=== PATIENT | male | born 1945 | race Caucasian/White ===

== ENCOUNTER 2016-03-11 07:08 | Outpatient (CLI) | payer MEDICARE | END 2016-03-11 07:09 | disposition home or self-care (01) | DX: J30.9 Allergic rhinitis, unspecified (principal); M54.12 Radiculopathy, cervical region; I25.9 Chronic ischemic heart disease, unspecified; F32.9 Major depressive disorder, single episode, unspecified; E11.9 Type 2 diabetes mellitus without complications; E78.5 Hyperlipidemia, unspecified; G47.10 Hypersomnia, unspecified; I10 Essential (primary) hypertension; M54.5 Low back pain; R25.1 Tremor, unspecified; R26.81 Unsteadiness on feet ==

== ENCOUNTER 2016-04-23 10:50 | Outpatient (CLI) | payer MEDICARE | END 2016-04-23 10:51 | disposition home or self-care (01) | DX: Z00.00 Encounter for general adult medical examination without abnormal findings (principal); E11.9 Type 2 diabetes mellitus without complications; J30.9 Allergic rhinitis, unspecified; M54.12 Radiculopathy, cervical region; I25.9 Chronic ischemic heart disease, unspecified; F32.9 Major depressive disorder, single episode, unspecified; E78.5 Hyperlipidemia, unspecified; G47.10 Hypersomnia, unspecified; I10 Essential (primary) hypertension; M54.5 Low back pain; R25.1 Tremor, unspecified; R26.81 Unsteadiness on feet ==

== ENCOUNTER 2016-05-17 10:11 | Outpatient (CLI) | payer MEDICARE | END 2016-05-17 10:12 | disposition home or self-care (01) | DX: R07.9 Chest pain, unspecified (principal); I25.9 Chronic ischemic heart disease, unspecified ==

== ENCOUNTER 2016-05-26 07:46 | Outpatient (CLI) | payer MEDICARE | END 2016-05-26 07:47 | disposition home or self-care (01) | DX: I10 Essential (primary) hypertension (principal) ==

== ENCOUNTER 2016-07-15 07:08 | Outpatient (CLI) | payer MEDICARE ==
[2016-07-15 11:49] LABS: HEMOGLOBIN A1C 0.83 g/dL
== END 2016-07-15 07:09 | disposition home or self-care (01) ==
LOC: LAB.F 07:08
PROVIDERS: ATTEND Internal Medicine
DX: E11.9 Type 2 diabetes mellitus without complications (principal)
CPT/HCPCS: 36415; 83036

== ENCOUNTER 2016-10-12 07:09 | Outpatient (CLI) | payer MEDICARE ==
[2016-10-12 11:11] LABS: HEMOGLOBIN A1C 0.95 g/dL
== END 2016-10-12 07:10 | disposition home or self-care (01) ==
LOC: LAB.F 07:09
PROVIDERS: ATTEND Internal Medicine
DX: J30.9 Allergic rhinitis, unspecified (principal); I25.9 Chronic ischemic heart disease, unspecified; F32.9 Major depressive disorder, single episode, unspecified; E11.9 Type 2 diabetes mellitus without complications; E78.5 Hyperlipidemia, unspecified; I10 Essential (primary) hypertension; M54.5 Low back pain; L98.9 Disorder of the skin and subcutaneous tissue, unspecified; R25.1 Tremor, unspecified
CPT/HCPCS: 36415; 83036

== ENCOUNTER 2016-11-05 09:08 | Outpatient (CLI) | payer MEDICARE ==
[2016-11-05 18:28] LABS: ALBUMIN/GLOBULIN RATIO 1.5 (1.0-2.2); BILIRUBIN,TOTAL 0.8 mg/dL (0.2-1.0); CALCIUM 9.2 mg/dL (8.5-10.3); CREATININE 0.9 mg/dL (0.6-1.2); TOTAL PROTEIN 7.5 g/dL (6.7-8.2)
[2016-11-05 18:30] LABS: BASOPHILS % (AUTO) 0.3 %; EOSINOPHILS # (AUTO) 0.1 10^3/uL (0.0-0.7); EOSINOPHILS % (AUTO) 1.6 %; HCT - HEMATOCRIT 51.5 % (42.0-52.0); HGB - HEMOGLOBIN 16.8 g/dL (14.0-18.0); LYMPHOCYTES # (AUTO) 1.7 10^3/uL (1.5-3.5); LYMPHOCYTES % (AUTO) 24.9 %; MEAN CORPUSCULAR HEMOGLOBIN 31.9 pg (27.0-31.0); MEAN CORPUSCULAR HGB CONC 32.6 g/dL (32.0-36.0); MEAN PLATELET VOLUME 8.9 fL (7.4-11.4); MONOCYTES # (AUTO) 0.7 10^3/uL (0.0-1.0); MONOCYTES % (AUTO) 10.6 %; NEUTROPHILS # (AUTO) 4.3 10^3/uL (1.5-6.6); NEUTROPHILS % (AUTO) 62.6 %; NUCLEATED RED BLOOD CELLS AUTO 0.1 /100WBC; RED BLOOD COUNT 5.25 10^6/uL (4.70-6.10); UNCORRECTED WHITE BLOOD COUNT 6.9 x10^3/uL; WHITE BLOOD COUNT 6.9 x10^3/uL (4.8-10.8)
[2016-11-05 18:47] LABS: HEMOGLOBIN A1C 0.98 g/dL
== END 2016-11-05 09:09 | disposition home or self-care (01) ==
LOC: LAB.F 09:08
PROVIDERS: ATTEND Internal Medicine
DX: E11.9 Type 2 diabetes mellitus without complications (principal); I25.9 Chronic ischemic heart disease, unspecified; E78.5 Hyperlipidemia, unspecified; R25.1 Tremor, unspecified; Z11.59 Encounter for screening for other viral diseases; Z11.4 Encounter for screening for human immunodeficiency virus [HIV]
CPT/HCPCS: 36415; 80053; 83036; 84443; 85025; 86803; G0475; 87389

== ENCOUNTER 2016-11-16 09:02 | Outpatient (CLI) | payer MEDICARE ==
[2016-11-16] MEDS: ALBUTEROL NEB 2.5 MG/3 ML INH SCH (09:30)
--- NOTE | 2016-11-16 13:04 | XRAY Report ---
TWO-VIEW CHEST: 11/16/2016 CLINICAL INDICATION: Chest pain, shortness of breath. COMPARISON: 01/10/2015 FINDINGS: Frontal and lateral views of the chest demonstrate a normal cardiac silhouette. The lungs are hyperinflated, compatible with COPD. No focal consolidation, effusion, or pneumothorax is prese nt. IMPRESSION: COPD, BUT NO EVIDENCE OF ACUTE CARDIOPULMONARY DISEASE. JOB #: [id number] EXT JOB #:[id number]
== END 2016-11-16 09:03 | disposition home or self-care (01) ==
LOC: RT 09:02
PROVIDERS: ATTEND Internal Medicine
DX: J44.9 Chronic obstructive pulmonary disease, unspecified (principal); R06.02 Shortness of breath; R07.9 Chest pain, unspecified
CPT/HCPCS: 71020; 93005; 94060; J7613

== ENCOUNTER 2016-11-17 12:59 | Outpatient (CLI) | payer MEDICARE | END 2016-11-17 13:00 | disposition short-term general hospital (02) | LOC: EMS 12:59 | PROVIDERS: ATTEND Surgery | DX: R55 Syncope and collapse (principal); R07.9 Chest pain, unspecified; R06.02 Shortness of breath | CPT/HCPCS: A0425; A0427 ==

== ENCOUNTER 2017-01-19 12:40 | Outpatient (CLI) | payer MEDICARE | END 2017-01-19 12:41 | disposition EMS.NT | LOC: EMS 12:40 | PROVIDERS: ATTEND Surgery | DX: R56.9 Unspecified convulsions (principal) ==

== ENCOUNTER 2017-03-18 07:17 | Outpatient (CLI) | payer MEDICARE ==
[2017-03-18 12:04] LABS: BASOPHILS % (AUTO) 0.6 %; EOSINOPHILS # (AUTO) 0.1 10^3/uL (0.0-0.7); LYMPHOCYTES # (AUTO) 1.1 10^3/uL (1.5-3.5); LYMPHOCYTES % (AUTO) 24.5 %; MEAN CORPUSCULAR HEMOGLOBIN 32.2 pg (27.0-31.0); MEAN CORPUSCULAR HGB CONC 33.4 g/dL (32.0-36.0); MEAN CORPUSCULAR VOLUME 96.5 fL (80.0-94.0); MONOCYTES # (AUTO) 0.7 10^3/uL (0.0-1.0); NEUTROPHILS # (AUTO) 2.4 10^3/uL (1.5-6.6); NEUTROPHILS % (AUTO) 55.9 %; PLT - PLATELET COUNT 154 10^3/uL (130-450); RED BLOOD COUNT 4.97 10^6/uL (4.70-6.10); RED CELL DISTRIBUTION WIDTH 14.2 % (12.0-15.0); WHITE BLOOD COUNT 4.4 x10^3/uL (4.8-10.8)
[2017-03-18 12:20] LABS: ALBUMIN 4.2 g/dL (3.2-5.5); ALBUMIN/GLOBULIN RATIO 1.4 (1.0-2.2); ALKALINE PHOSPHATASE 49 IU/L (42-121); ALT ALANINE AMINOTRANSFERASE 33 IU/L (10-60); AST ASPARTATE AMINOTRANSFERASE 27 IU/L (10-42); BILIRUBIN,TOTAL 0.4 mg/dL (0.2-1.0); BUN - BLOOD UREA NITROGEN 23 mg/dL (6-20); CALCIUM 9.2 mg/dL (8.5-10.3); CARBON DIOXIDE - CO2 23 mmol/L (21-32); CHLORIDE 102 mmol/L (101-111); CHOL/HDL RATIO 4.9 (<5.0); CHOLESTEROL 180 mg/dL; CK- CREATINE KINASE 129 IU/L (22-269); CREATININE 0.9 mg/dL (0.6-1.2); CREATININE,URINE 161.6 mg/dL; GFR - MDRD 83 (>89); GLUCOSE 133 mg/dL (70-100); HDL CHOLESTEROL 37 mg/dL; LDL CHOLESTEROL,CALCULATED 83 mg/dL; LDL/HDL RATIO 2.2 (<3.6); MICROALBUM/CREATININE RATIO,UR 6.8 ug/mg (<30.0); MICROALBUMIN,URINE 1.1 mg/dL (0-300.0); SODIUM 138 mmol/L (135-145); TOTAL PROTEIN 7.2 g/dL (6.7-8.2); VLDL CHOLESTEROL 60 mg/dL
[2017-03-18 12:28] LABS: HB2 TOTAL 17.5 g/dL; HEMOGLOBIN A1C 0.87 g/dL; HEMOGLOBIN A1C % 6.7 % (4.6-6.2)
[2017-03-18 12:31] LABS: THYROID STIMULATING HORMONE 3.25 uIU/mL (0.34-5.60)
== END 2017-03-18 07:18 | disposition home or self-care (01) ==
LOC: LAB.F 07:17
PROVIDERS: ATTEND Internal Medicine
DX: Z00.00 Encounter for general adult medical examination without abnormal findings (principal); I25.9 Chronic ischemic heart disease, unspecified; E11.9 Type 2 diabetes mellitus without complications; E78.5 Hyperlipidemia, unspecified; I10 Essential (primary) hypertension; R41.3 Other amnesia; G20 Parkinson's disease; R06.00 Dyspnea, unspecified; R25.1 Tremor, unspecified; Z11.59 Encounter for screening for other viral diseases
CPT/HCPCS: 36415; 80053; 80061; 82043; 82550; 82570; 82607; 83036; 83721; 84443; 85025

== ENCOUNTER 2017-03-26 09:30 | Outpatient (CLI) | payer MEDICARE ==
--- NOTE | 2017-03-27 06:52 | CT Report ---
EXAM: CT HEAD EXAM DATE: 03/26/2017 09:55 AM. CLINICAL HISTORY: MEMORY LOSS. COMPARISON: None. TECHNIQUE: Multiaxial CT images were obtained from the foramen magnum to the vertex. Reformats: Coron al. IV contrast: None. In accordance with CT protocol optimization, one or more of the following dose reduction techniques w ere utilized for this exam: automated exposure control, adjustment of mA and/or KV based on patient s ize, or use of iterative reconstructive technique. FINDINGS: Parenchyma: No intraparenchymal hemorrhage. No evidence of mass, midline shift, or CT findings of acu te infarction. Snyder-white differentiation is distinct. 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 Extraaxial Spaces: Normal for age. No subdural or epidural collections identified. Ventricles: The ventricles and cortical sulci are enlarged, consistent with age-related tissue loss. Sinuses and orbits: Imaged paranasal sinuses, orbits, and mastoids show no significant abnormality. Bones: No evidence of fracture or calvarial defect. Other: None. IMPRESSION: Generalized age-related cortical atrophic changes without evidence of acute intracranial abnormality. [facility] Referring Provider Line: [phone] SITE ID: [id number]
== END 2017-03-26 09:31 | disposition home or self-care (01) ==
LOC: DI 09:30
PROVIDERS: ATTEND Internal Medicine
DX: R41.3 Other amnesia (principal)
CPT/HCPCS: 70450

== ENCOUNTER 2017-05-06 08:32 | Outpatient (CLI) | payer MEDICARE ==
[2017-05-06 10:29] LABS: CALCIUM 8.8 mg/dL (8.5-10.3); CREATININE 0.9 mg/dL (0.6-1.2)
== END 2017-05-06 08:33 | disposition home or self-care (01) ==
LOC: LAB.F 08:32
PROVIDERS: ATTEND Internal Medicine
DX: I25.9 Chronic ischemic heart disease, unspecified (principal); E11.9 Type 2 diabetes mellitus without complications; E78.5 Hyperlipidemia, unspecified; I10 Essential (primary) hypertension; R41.3 Other amnesia; M79.1 Myalgia; G20 Parkinson's disease; R06.00 Dyspnea, unspecified; R25.1 Tremor, unspecified
CPT/HCPCS: 36415; 80048

== ENCOUNTER 2017-09-22 07:07 | Outpatient (CLI) | payer MEDICARE ==
[2017-09-22 11:58] LABS: CHOL/HDL RATIO 6.3 (<5.0); CHOLESTEROL 234 mg/dL; HDL CHOLESTEROL 37 mg/dL; LDL CHOLESTEROL,CALCULATED 129 mg/dL; LDL/HDL RATIO 3.5 (<3.6); VLDL CHOLESTEROL 68 mg/dL
[2017-09-22 12:24] LABS: HB2 TOTAL 18.2 g/dL; HEMOGLOBIN A1C 0.89 g/dL; HEMOGLOBIN A1C % 6.6 % (4.6-6.2)
== END 2017-09-22 07:08 | disposition home or self-care (01) ==
LOC: LAB.F 07:07
PROVIDERS: ATTEND Internal Medicine
DX: I25.9 Chronic ischemic heart disease, unspecified (principal); E11.40 Type 2 diabetes mellitus with diabetic neuropathy, unspecified; E78.5 Hyperlipidemia, unspecified; I10 Essential (primary) hypertension; M79.1 Myalgia; E53.8 Deficiency of other specified B group vitamins
CPT/HCPCS: 36415; 80061; 82306; 82607; 83036; 83721

== ENCOUNTER 2017-10-21 10:44 | Outpatient (CLI) | payer MEDICARE ==
[2017-10-21 17:32] LABS: BASOPHILS % (AUTO) 0.7 %; EOSINOPHILS % (AUTO) 1.6 %; HGB - HEMOGLOBIN 16.8 g/dL (14.0-18.0); LYMPHOCYTES % (AUTO) 21.7 %; MEAN CORPUSCULAR HEMOGLOBIN 32.5 pg (27.0-31.0); MEAN CORPUSCULAR HGB CONC 33.2 g/dL (32.0-36.0); MEAN PLATELET VOLUME 9.5 fL (7.4-11.4); MONOCYTES % (AUTO) 13.7 %; NEUTROPHILS % (AUTO) 62.3 %; PLT - PLATELET COUNT 192 10^3/uL (130-450); RED BLOOD COUNT 5.16 10^6/uL (4.70-6.10); RED CELL DISTRIBUTION WIDTH 14.2 % (12.0-15.0); WHITE BLOOD COUNT 6.7 x10^3/uL (4.8-10.8)
[2017-10-21 17:43] LABS: ABNORMAL LYMPHS % (MANUAL) 0 %; BAND NEUTROPHILS % (MANUAL) 0 %
[2017-10-21 18:03] LABS: ALBUMIN 4.2 g/dL (3.2-5.5); ALBUMIN/GLOBULIN RATIO 1.3 (1.0-2.2); BILIRUBIN,TOTAL 0.5 mg/dL (0.2-1.0); CALCIUM 9.5 mg/dL (8.5-10.3); TOTAL PROTEIN 7.5 g/dL (6.7-8.2)
[2017-10-21 19:12] LABS: EOSINOPHILS # (MANUAL) 0.1 10^3/uL (0-0.7); LYMPHOCYTES # (MANUAL) 1.2 10^3/uL (1.5-3.5); LYMPHOCYTES % (MANUAL) 14 %; METAMYELOCYTES % (MANUAL) 2 %; MONOCYTES # (MANUAL) 1.1 10^3/uL (0.0-1.0); NEUTROPHILS # (MANUAL) 4.2 10^3/uL (1.5-6.6); NEUTROPHILS % (MANUAL) 62 %
[2017-10-21 19:13] LABS: PLATELET ESTIMATE, MANUAL NORMAL (130-450,000) (NORMAL); PLATELET MORPHOLOGY NORMAL APPEARANCE (NORMAL); RBC MORPHOLOGY (MULTIPLE) NORMAL APPEARANCE (NORMAL)
== END 2017-10-21 10:45 | disposition home or self-care (01) ==
LOC: LAB.F 10:44
PROVIDERS: ATTEND Internal Medicine
DX: E11.40 Type 2 diabetes mellitus with diabetic neuropathy, unspecified (principal); I10 Essential (primary) hypertension; I25.9 Chronic ischemic heart disease, unspecified; E55.9 Vitamin D deficiency, unspecified; E53.8 Deficiency of other specified B group vitamins; E78.5 Hyperlipidemia, unspecified; M79.1 Myalgia; R10.10 Upper abdominal pain, unspecified
CPT/HCPCS: 36415; 80053; 82607; 85025

== ENCOUNTER 2018-05-12 08:00 | Outpatient (CLI) | payer MEDICARE ==
[2018-05-12 10:14] LABS: BASOPHILS % (AUTO) 0.3 %; EOSINOPHILS # (AUTO) 0.1 10^3/uL (0.0-0.7); EOSINOPHILS % (AUTO) 2.3 %; HGB - HEMOGLOBIN 17.1 g/dL (14.0-18.0); LYMPHOCYTES # (AUTO) 1.6 10^3/uL (1.5-3.5); LYMPHOCYTES % (AUTO) 26.8 %; MEAN CORPUSCULAR HEMOGLOBIN 32.3 pg (27.0-31.0); MEAN CORPUSCULAR VOLUME 97.9 fL (80.0-94.0); MEAN PLATELET VOLUME 8.7 fL (7.4-11.4); MONOCYTES # (AUTO) 0.9 10^3/uL (0.0-1.0); MONOCYTES % (AUTO) 14.6 %; NEUTROPHILS # (AUTO) 3.3 10^3/uL (1.5-6.6); PLT - PLATELET COUNT 167 10^3/uL (130-450); RED BLOOD COUNT 5.29 10^6/uL (4.70-6.10); RED CELL DISTRIBUTION WIDTH 13.5 % (12.0-15.0); WHITE BLOOD COUNT 5.9 x10^3/uL (4.8-10.8)
[2018-05-12 10:29] LABS: BUN - BLOOD UREA NITROGEN 27 mg/dL (6-20); CALCIUM 9.4 mg/dL (8.5-10.3); CARBON DIOXIDE - CO2 24 mmol/L (21-32); CHLORIDE 102 mmol/L (101-111); CHOL/HDL RATIO 5.8 (<5.0); CHOLESTEROL 215 mg/dL; CREATININE 0.9 mg/dL (0.6-1.2); GFR - MDRD 83 (>89); GLUCOSE 147 mg/dL (70-100); HDL CHOLESTEROL 37 mg/dL; LDL CHOLESTEROL,CALCULATED 105 mg/dL; LDL/HDL RATIO 2.8 (<3.6); SODIUM 136 mmol/L (135-145); VLDL CHOLESTEROL 73 mg/dL
[2018-05-12 10:44] LABS: HB2 TOTAL 19.1 g/dL; HEMOGLOBIN A1C 0.92 g/dL; HEMOGLOBIN A1C % 6.6 % (4.6-6.2)
[2018-05-12 10:47] LABS: CREATININE,URINE 158.4 mg/dL; MICROALBUM/CREATININE RATIO,UR 13.3 ug/mg (<30.0); MICROALBUMIN,URINE 2.1 mg/dL (0-300.0)
== END 2018-05-12 23:59 | disposition home or self-care (01) ==
LOC: LAB.F 08:00
PROVIDERS: ATTEND Internal Medicine
DX: I25.9 Chronic ischemic heart disease, unspecified (principal); Z00.00 Encounter for general adult medical examination without abnormal findings; J44.9 Chronic obstructive pulmonary disease, unspecified; E55.9 Vitamin D deficiency, unspecified; E11.9 Type 2 diabetes mellitus without complications; E78.5 Hyperlipidemia, unspecified; I10 Essential (primary) hypertension; M79.10 Myalgia, unspecified site; R10.10 Upper abdominal pain, unspecified; E53.8 Deficiency of other specified B group vitamins
CPT/HCPCS: 36415; 80048; 80061; 82043; 82306; 82570; 82607; 83036; 83721; 85025

== ENCOUNTER 2019-11-01 07:08 | Outpatient (CLI) | payer MEDICARE ==
[2019-11-01 15:36] LABS: BASOPHILS # (AUTO) 0.1 10^3/uL (0.0-0.1); BASOPHILS % (AUTO) 0.9 %; EOSINOPHILS # (AUTO) 0.1 10^3/uL (0.0-0.7); HGB - HEMOGLOBIN 17.2 g/dL (14.0-18.0); LYMPHOCYTES # (AUTO) 1.7 10^3/uL (1.5-3.5); LYMPHOCYTES % (AUTO) 30.3 %; MEAN CORPUSCULAR HEMOGLOBIN 33.2 pg (27.0-31.0); MEAN CORPUSCULAR HGB CONC 33.7 g/dL (32.0-36.0); MEAN CORPUSCULAR VOLUME 98.5 fL (80.0-94.0); MEAN PLATELET VOLUME 10.7 fL (7.4-11.4); MONOCYTES # (AUTO) 0.7 10^3/uL (0.0-1.0); MONOCYTES % (AUTO) 12.6 %; NEUTROPHILS # (AUTO) 2.9 10^3/uL (1.5-6.6); NEUTROPHILS % (AUTO) 53.7 %; PLT - PLATELET COUNT 164 10^3/uL (130-450); RED BLOOD COUNT 5.18 10^6/uL (4.70-6.10); RED CELL DISTRIBUTION WIDTH 13.1 % (12.0-15.0); WHITE BLOOD COUNT 5.5 x10^3/uL (4.8-10.8)
[2019-11-01 15:49] LABS: CREATININE,URINE 314.7 mg/dL; MICROALBUM/CREATININE RATIO,UR 28.9 ug/mg (<30.0); MICROALBUMIN,URINE 9.1 mg/dL (0-300.0)
[2019-11-01 16:00] LABS: BUN - BLOOD UREA NITROGEN 19 mg/dL (6-20); CALCIUM 9.3 mg/dL (8.5-10.3); CARBON DIOXIDE - CO2 23 mmol/L (21-32); CHLORIDE 98 mmol/L (101-111); CHOL/HDL RATIO 6.2 (<5.0); CHOLESTEROL 259 mg/dL; GLUCOSE 281 mg/dL (70-100); HDL CHOLESTEROL 42 mg/dL; SODIUM 135 mmol/L (135-145)
[2019-11-01 16:26] LABS: LDL CHOLESTEROL,DIRECT 160 mg/dL; LDLD/HDL RATIO 3.8 (<3.6)
[2019-11-01 18:54] LABS: HEMOGLOBIN A1c% 10.4 % (4.27-6.07)
== END 2019-11-01 07:09 | disposition home or self-care (01) ==
LOC: LAB.S 07:08
PROVIDERS: ATTEND Internal Medicine
DX: Z00.00 Encounter for general adult medical examination without abnormal findings (principal); I10 Essential (primary) hypertension; E11.9 Type 2 diabetes mellitus without complications; E78.5 Hyperlipidemia, unspecified; E55.9 Vitamin D deficiency, unspecified; Z12.11 Encounter for screening for malignant neoplasm of colon; I25.9 Chronic ischemic heart disease, unspecified; J30.9 Allergic rhinitis, unspecified; M54.12 Radiculopathy, cervical region; R07.9 Chest pain, unspecified; F32.9 Major depressive disorder, single episode, unspecified; G47.10 Hypersomnia, unspecified; M54.5 Low back pain; R22.2 Localized swelling, mass and lump, trunk; R41.3 Other amnesia; R10.10 Upper abdominal pain, unspecified; G20 Parkinson's disease; L21.9 Seborrheic dermatitis, unspecified; R06.00 Dyspnea, unspecified; L98.9 Disorder of the skin and subcutaneous tissue, unspecified; R26.81 Unsteadiness on feet; J44.9 Chronic obstructive pulmonary disease, unspecified
CPT/HCPCS: 36415; 80048; 80061; 82043; 82306; 82570; 82607; 83036; 83721; 85025

== ENCOUNTER 2022-10-20 08:17 | Outpatient (CLI) | payer MEDICARE | END 2022-10-20 23:59 | disposition short-term general hospital (02) | LOC: EMS 08:17 | DX: R53.1 Weakness (principal); R42 Dizziness and giddiness; R63.8 Other symptoms and signs concerning food and fluid intake; R05.9 Cough, unspecified; R41.82 Altered mental status, unspecified; R09.3 Abnormal sputum | CPT/HCPCS: A0425; A0429 ==